=== PATIENT | male | born 1950 | race Caucasian/White ===

== ENCOUNTER 2020-07-30 10:08 | Day surgery (SDC) | payer MEDICARE, OTHER ==
[2020-07-29 12:56] LABS: ALBUMIN 3.9 G/DL (3.4-5.0); ANION GAP 11 (8-16); BASOPHILS # (AUTO) 0.1 X10'3 (0-0.2); BASOPHILS % (AUTO) 0.8 % (0-1); BLOOD UREA NITROGEN 36 MG/DL (7-18); BUN/CREATININE RATIO 20.2 (5.4-32.0); CALCIUM 9.4 MG/DL (8.5-10.1); CHLORIDE 107 MMOL/L (99-107); CREATININE 1.78 MG/DL (0.60-1.10); EOSINOPHILS # (AUTO) 0.3 X10'3 (0-0.9); EOSINOPHILS % (AUTO) 4.4 % (0-6); GLUCOSE 116 MG/DL (70-104); HEMATOCRIT 42.1 % (42.0-52.0); HEMOGLOBIN 13.9 g/dl (14.0-17.9); LYMPHOCYTES # (AUTO) 2.3 X10'3 (1.1-4.8); LYMPHOCYTES % (AUTO) 30.3 % (21-51); MEAN CORPUSCULAR HEMOGLOBIN 31.6 PG (27.0-31.0); MEAN CORPUSCULAR HGB CONC 33.1 g/dL (33.0-36.5); MEAN CORPUSCULAR VOLUME 95.2 FL (78-98); MEAN PLATELET VOLUME 8.4 FL (7.4-10.4); MONOCYTES % (AUTO) 13.5 % (2-12); NEUTROPHILS # (AUTO) 3.8 X10'3 (1.8-7.7); PLATELET COUNT 202 X10'3 (140-440); RED BLOOD COUNT 4.42 X10'6 (4.70-6.10); RED CELL DISTRIBUTION WIDTH 13.4 % (11.5-14.5); SODIUM 145 MMOL/L (135-145); TOTAL CARBON DIOXIDE 27.3 MMOL/L (24-32); WHITE BLOOD COUNT 7.4 X10'3 (4.5-11.0); eGFR 38 ML/MIN
[~2020-07-30] VITALS: Ht 157.5 cm; Wt 102.3 kg
[2020-07-30] VITALS (10 sets, daily range): BP systolic 101–140; BP diastolic 61–96
[2020-07-30] MEDS ORDERED: DIAZ5TAB22 PO (10:42)
[2020-07-30] MEDS ORDERED: DICL75TA5 PO (10:44)
[2020-07-30] MEDS ORDERED: atropine 0.1mg/ml 10ml syringe IV ONE (10:45)
[2020-07-30] MEDS ORDERED: morphine 10mg/ml inj. IV ONE (10:45)
[2020-07-30] MEDS ORDERED: LORazepam 0.5 MG tablet PO ONE (10:45)
[2020-07-30] MEDS ORDERED: MIDAZolam 1mg/ml 10ml vial IV ONE (10:45)
[2020-07-30] MEDS ORDERED: METO-411 PO (10:46)
[2020-07-30] MEDS ORDERED: ROSU40TA PO (10:46)
[2020-07-30] MEDS ORDERED: APIX5TAB3 PO (10:47)
[2020-07-30] MEDS ORDERED: FLO0.4C PO (10:48)
[2020-07-30] MEDS ORDERED: FLEC100T35 PO (10:53)
[2020-07-30] MEDS ORDERED: diphenhydrAMINE 25mg capsule PO ONE (11:50)
[2020-07-30] MEDS ORDERED: amiodarone 150mg/dext, iso-os 100 ML IV ONE (11:50)
[2020-07-30] MEDS ORDERED: normal saline 1000ml 1,000 ML IV SCH (12:10)
== END 2020-07-30 14:30 | disposition home or self-care (01) ==
LOC: SSTAY O 10:08
PROVIDERS: ATTEND Internal Medicine Cardiovascular Disease
DX: I48.91 Unspecified atrial fibrillation (principal); I44.7 Left bundle-branch block, unspecified; E66.9 Obesity, unspecified; E78.5 Hyperlipidemia, unspecified; Z79.899 Other long term (current) drug therapy
CPT/HCPCS: 36415; 80048; 85025; 85610; 92960; 93005; 94799; J2250; J2270; Q0163

== ENCOUNTER 2020-11-11 07:30 | Outpatient (CLI) | payer MEDICARE, OTHER ==
[2020-11-11] VITALS (21 sets, daily range): BP systolic 108–160; BP diastolic 54–106
[~2020-11-11 07:30] MED LIST: APIX5TAB3 PO; DIAZ5TAB22 PO; DICL75TA5 PO; FLEC100T35 PO; FLO0.4C PO; METO-411 PO; ROSU40TA PO
== END 2020-11-11 23:59 | disposition home or self-care (01) ==
LOC: CARD DIAG 07:30
PROVIDERS: ATTEND Internal Medicine Cardiovascular Disease
DX: R42 Dizziness and giddiness (principal)
CPT/HCPCS: 93660